=== PATIENT | male | born 1985 | race Hispanic/Latino ===

== ENCOUNTER 2017-03-04 15:54 | Emergency (ER) | payer OTHER ==
[2017-03-04 16:00] VITALS: BP 135/83; PULSE 105; RESP 18; TEMP 98.6; O2SAT 98
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
== END 2017-03-04 17:28 | disposition home or self-care (01) ==
LOC: C.ER 15:54
DX: S42.001A Fracture of unspecified part of right clavicle, initial encounter for closed fracture (principal); V19.9XXA Pedal cyclist (driver) (passenger) injured in unspecified traffic accident, initial encounter; Y93.55 Activity, bike riding
CPT/HCPCS: 73000; 96372; 99285; J1885